=== PATIENT | male | born 1970 | race African-American/Black ===

== ENCOUNTER 2021-10-30 09:36 | Inpatient (IN) ==
[2021-10-30] MEDS ORDERED: ONDANSETRON INJ 2 MG/ML 2 ML VIAL IV STA (09:46)
--- NOTE | 2021-10-30 09:54 | Emergency Department Note ---
Impression & Plan Weakness, DKA (diabetic ketoacidosis), Acute dehydration, Elevated lactic acid level, Metabolic acidosis ED Provider Note NAME: MEGHNA [id number] RICHAR AGE: 51 SEX: M : 1970 ARRIVES VIA: Ambulance INFORMANT: [Patient][ems] ED PROVIDER(S): [Miguel Menard MD] CHIEF COMPLAINT: Syncope HISTORY OF PRESENT ILLNESS: The patient is a 51-year-old male who is from the local [facility] longterm--[facility]. The patient has a history of high cholesterol and takes medications for this. He states that 2 weeks ago, he began to notice increased thirst and increased urination. His vision seemed off. He began to have difficulty concentrating. He lost his urine at nighttime a few times because of how much urine he is producing. He denies fevers, cough or congestion. No shortness of breath. No abdominal pain. No diarrhea. He really has not had any food for about 4 to 5 days-he has no appetite. Today, he vomited for the first time. He went to the [facility] at the longterm and had a syncopal event. Apparently, the blood sugar was tested and was recorded as high. He was given 10 units of regular insulin. He was sent to the hospital by EMS. He received about 400 cc of IV fluid on the way here. The patient currently complains of generalized weakness and fatigue. He states he is so weak he can barely even climb the stairs. His weakness is generalized. He denies any pain at the present. REVIEW OF SYSTEMS: See HPI for pertinent positives and negatives. A total of ten systems were reviewed and were otherwise negative. PMHx/PSHx: See Below SOCIAL HISTORY: See Below. PHYSICAL EXAM: GENERAL: Patient is in no acute distress. HEENT: No acute trauma, normocephalic atraumatic, mucous membranes dry, no nasal congestion, no scleral icterus. NECK: No stridor, no adenopathy, no meningismus, trachea is midline. LUNGS: Clear to auscultation bilaterally, no wheeze, no rhonchi, breath sounds equal. HEART: Without murmurs gallops or rubs, regular rate and rhythm. ABDOMEN: Soft, nontender, bowel sounds positive, no hernias, no peritonitis. EXTREMITIES: No cyanosis or edema, full range of motion of all the joints without pain or difficulty, no signs for acute trauma. NEUROLOGIC: Oriented x 3, no acute motor or sensory deficits, no focal weakness. SKIN: No rash, no jaundice, no diaphoresis. DIFFERENTIAL DIAGNOSIS: Infection, UTI, metabolic acidosis, dehydration, metabolic abnormality, hypo/hyperglycemia, electrolyte disturbance, anemia, hypoxia, cardiac sources, intracerebral event, toxicologic issues, stroke, TIA, as well as other pathologies. EMERGENCY DEPARTMENT COURSE/PROCEDURES: ECG: Indication was weakness. The ECG shows a normal sinus rhythm with a rate of 86. There is no ST elevation, no PVCs. The QTC is 536. Continuous Cardiac Monitoring: An order was placed for continuous cardiac monitoring. The monitor shows a rate of 90 with normal sinus rhythm. Critical Care Note: I have personally spent 49 minutes of critical care time in the direct management of this patient. This includes bedside care, interpretation of diagnostic studies, and testing, discussion with consultants, patient, and family members, and other required patient management activities. This 49 minutes is in excess of all separately billable procedures. MEDICAL DECISION MAKING: There is no leukocytosis or concerning anemia. There is a normal platelet count. ABG shows a metabolic acidosis with a pH of 7.29. There was some respiratory compensation noted. Renal panel testing showed a high sugar at over 700, metabolic acidosis was noted based on the low carbon dioxide value. There was some acute kidney injury with a creatinine of 1.9. Lactic acid level was elevated consistent with dehydration or possibly infection. Alk phos was a bit elevated, bilirubin and AST/ALT were normal. Patient appeared to be in a euthyroid state. ECG showed a normal sinus rhythm, no ischemia. Cardiac enzyme testing x1 was not consistent with acute cardiac injury. Chest x-ray did not show pneumonia or CHF. Urinalysis shows ketones and glucose, no infection. Covid testing returned negative. The patient presents with weakness. He was found by work-up to be in DKA. The patient was given an additional liter of IV saline while here in the ED. He had received about 1 L through EMS. Received IV Zofran for nausea. He was placed on an insulin drip to be titrated based on his sugar values. Patient seems to be improving. His sugar is improving. He is going to require a hospital stay, IV hydration, IV insulin. I do think the findings of DKA explain his complaints. I spoke with the patient and case management. The on-call hospitalist was consulted. Past Med/Surg History Medical History Hyperlipidemia Surgical History H/O hand surgery Family History Mother Diabetes Brother Diabetes Social History Smoking Status: Former smoker Smoking End Date: 3 YEARS AGO; Second Hand Exposure: No; Hx Alcohol Use: No Hx Substance Use: Yes Substance Use Type Other:: 17 YEARS AGO Preferred Language: Uzbek Communication Ability: Effective Software Reverse Engineer Required: No Beliefs That Will Affect Care: None Current Living Situation: Other Current Living Situation Comment: [facility] Other Information That Helps Us Care for You: No Feels Safe at Home: Yes Safety Concerns: Feels Safe At This Time Assistive Devices: None Allergies Allergies Allergy/AdvReac Type Severity Reaction Status Date / Time No Known Allergies Allergy Unverified 10/30/21 11:11 Home Meds Home Medications Medication Instructions Recorded Confirmed atorvastatin 40 mg tablet 40 mg PO DAILY 10/30/21 10/30/21 Results & Data (ED) Vital Signs Vital Signs - 24 hr 10/30/21 09:45 10/30/21 09:51 10/30/21 09:52 Temperature Temperature Source Pulse Rate 94 H 90 Pulse Rate [Apical] 90 Pulse Rate from SpO2 Sensor Respiratory Rate 24 20 20 Respiratory Effort / Characteristics Non-Labored Spontaneous Respiratory Depth Normal Respiratory Pattern Regular Blood Pressure Blood Pressure [Right Arm] 160/111 H Blood Pressure Mean Blood Pressure Mean [Right Arm] 127 Pulse Oximetry 98 98 Oxygen Delivery Method Room Air Room Air Sepsis Recent Fever Within 48 Hours Sepsis New/Unexplained Change in Mental Status Sepsis Action Taken by Nursing 10/30/21 09:53 10/30/21 10:00 10/30/21 10:14 Temperature 37.2 C Temperature Source Oral Pulse Rate 90 88 86 Pulse Rate [Apical] Pulse Rate from SpO2 Sensor 84 83 Respiratory Rate 20 19 13 Respiratory Effort / Characteristics Non-Labored Spontaneous Respiratory Depth Normal Respiratory Pattern Regular Blood Pressure 160/111 H 156/114 H Blood Pressure [Right Arm] Blood Pressure Mean 127 128 Blood Pressure Mean [Right Arm] Pulse Oximetry 98 98 97 Oxygen Delivery Method Room Air Sepsis Recent Fever Within 48 Hours No Sepsis New/Unexplained Change in Mental Status No Sepsis Action Taken by Nursing No Action Required 10/30/21 10:30 Temperature Temperature Source Pulse Rate 76 Pulse Rate [Apical] Pulse Rate from SpO2 Sensor 75 Respiratory Rate 12 Respiratory Effort / Characteristics Respiratory Depth Respiratory Pattern Blood Pressure 142/95 H Blood Pressure [Right Arm] Blood Pressure Mean 110 Blood Pressure Mean [Right Arm] Pulse Oximetry 98 Oxygen Delivery Method Sepsis Recent Fever Within 48 Hours Sepsis New/Unexplained Change in Mental Status Sepsis Action Taken by Senior Living Medications Current Medication List: was personally reviewed by me Laboratory Data Attestation: I reviewed the patient's lab results. Result diagrams: 10/30/21 10:04 10/30/21 14:28 Lab Results 10/30/21 10/30/21 10/30/21 Range/Units 09:45 10:04 10:04 WBC 6.96 (4.8-10.8) K/uL RBC 6.06 (4.7-6.1) M/uL Hgb 18.0 (14.0-18.0) g/dL Hct 54.5 H (42-52) % MCV 89.9 (80-100) fL MCH 29.7 (25-34) pg MCHC 33.0 (32-36) g/dL RDW Std Deviation 47.2 H (36.4-46.3) fL RDW Coeff of Rahat 14.4 (11.5-14.5) % Plt Count 154 (130-400) K/uL MPV 13.6 H (7.4-10.4) fL Immature Gran % (Auto) 0.1 % Neut % (Auto) 72.3 % Lymph % (Auto) 20.5 % Cuming % (Auto) 6.8 % Eos % (Auto) 0.0 % Baso % (Auto) 0.3 % Neut # (Auto) 5.03 (1.4-6.5) K/uL Lymph # (Auto) 1.43 (1.2-3.4) K/uL Cuming # (Auto) 0.47 (0.11-0.59) K/uL Eos # (Auto) 0.00 (0-0.5) K/uL Baso # (Auto) 0.02 (0-0.2) K/uL Immature Gran # (Auto) 0.01 (0.00-0.02) K/uL ABG pH (7.35-7.45) ABG pCO2 (35-46) mmHg ABG pO2 (80-95) mmHg ABG HCO3 (19-24) mmol/L ABG O2 Saturation (90-95) % ABG Base Excess (-9-1.8) mEq/L Ibrahima Test (Pos) Barometric Pressure mm/Hg Oxygen Given Sodium 137 (136-145) mmol/L Potassium 5.5 H (3.5-5.1) mmol/L Chloride 95 L (98-107) mmol/L Carbon Dioxide 13 L (21-32) mmol/L Anion Gap 29 H (3-11) BUN 33 H (6-23) mg/dl Creatinine 1.98 H (0.6-1.4) mg/dl Est Cr Clr Drug Dosing 52.5 ml/min Est GFR ( Amer) 44.7 ml/min Est GFR (Non-Af Amer) 38.5 ml/min BUN/Creatinine Ratio 16.7 (10-20) Glucose 765 H* (70-99(Fasting)) mg/dl Lactate (0.4-2.0) mmol/L Calcium 9.6 (8.5-10.1) mg/dl Phosphorus 6.6 H (2.5-4.9) mg/dl Magnesium 3.0 H (1.7-2.4) mg/dl Total Bilirubin 0.7 (0.2-1.0) mg/dl AST 13 (13-39) U/L ALT 26 (7-52) U/L Alkaline Phosphatase 117 H (34-104) U/L Total Creatine Kinase 384 H (30-223) U/L Troponin I < 0.03 (0-0.04) ng/ml Total Protein 8.2 (6.0-8.3) gm/dl Albumin 4.7 (3.4-5.0) gm/dl Globulin 3.5 (2.5-4.0) gm/dl Albumin/Globulin Ratio 1.3 (0.9-2) TSH (0.300-4.500) uIu/ml Urine Color Urine Appearance (Clear) Urine pH (4.5-7.5) Ur Specific [place] (1.000-1.030) Urine Protein (Negative) Urine Glucose (UA) (Negative) Urine Ketones (Negative) Urine Blood (Negative) Urine Nitrite (Negative) Urine Bilirubin (Negative) Urine Urobilinogen (Negative) Ur Leukocyte Esterase (Negative) Urine WBC (Auto) (0-5) /hpf Urine RBC (Auto) (0-4) /hpf U Hyaline Cast (Auto) (0-5) /lpf U Epithel Cells (Auto) (0-5) /lpf Urine Bacteria (Auto) (Negative) SARS-CoV-2, RNA, NAAT NEGATIVE (NEGATIVE) 10/30/21 10/30/21 10/30/21 Range/Units 10:04 10:04 10:10 WBC (4.8-10.8) K/uL RBC (4.7-6.1) M/uL Hgb (14.0-18.0) g/dL Hct (42-52) % MCV (80-100) fL MCH (25-34) pg MCHC (32-36) g/dL RDW Std Deviation (36.4-46.3) fL RDW Coeff of Rahat (11.5-14.5) % Plt Count (130-400) K/uL MPV (7.4-10.4) fL Immature Gran % (Auto) % Neut % (Auto) % Lymph % (Auto) % [place]uming % (Auto) % Eos % (Auto) % Baso % (Auto) % Neut # (Auto) (1.4-6.5) K/uL Lymph # (Auto) (1.2-3.4) K/uL [place] # (Auto) (0.11-0.59) K/uL Eos # (Auto) (0-0.5) K/uL Baso # (Auto) (0-0.2) K/uL Immature Gran # (Auto) (0.00-0.02) K/uL ABG pH 7.29 L (7.35-7.45) ABG pCO2 29 L (35-46) mmHg ABG pO2 97 H (80-95) mmHg ABG HCO3 13 L (19-24) mmol/L ABG O2 Saturation 97.2 H (90-95) % ABG Base Excess -11.4 L (-9-1.8) mEq/L Ibrahima Test Pos (Pos) Barometric Pressure 733.5 mm/Hg Oxygen Given RA Sodium (136-145) mmol/L Potassium (3.5-5.1) mmol/L Chloride (98-107) mmol/L Carbon Dioxide (21-32) mmol/L Anion Gap (3-11) BUN (6-23) mg/dl Creatinine (0.6-1.4) mg/dl Est Cr Clr Drug Dosing ml/min Est GFR ( Amer) ml/min Est GFR (Non-Af Amer) ml/min BUN/Creatinine Ratio (10-20) Glucose (70-99(Fasting)) mg/dl Lactate 3.4 H* (0.4-2.0) mmol/L Calcium (8.5-10.1) mg/dl Phosphorus (2.5-4.9) mg/dl Magnesium (1.7-2.4) mg/dl Total Bilirubin (0.2-1.0) mg/dl AST (13-39) U/L ALT (7-52) U/L Alkaline Phosphatase (34-104) U/L Total Creatine Kinase (30-223) U/L Troponin I (0-0.04) ng/ml Total Protein (6.0-8.3) gm/dl Albumin (3.4-5.0) gm/dl Globulin (2.5-4.0) gm/dl Albumin/Globulin Ratio (0.9-2) TSH 0.340 (0.300-4.500) uIu/ml Urine Color Urine Appearance (Clear) Urine pH (4.5-7.5) Ur Specific [place] (1.000-1.030) Urine Protein (Negative) Urine Glucose (UA) (Negative) Urine Ketones (Negative) Urine Blood (Negative) Urine Nitrite (Negative) Urine Bilirubin (Negative) Urine Urobilinogen (Negative) Ur Leukocyte Esterase (Negative) Urine WBC (Auto) (0-5) /hpf Urine RBC (Auto) (0-4) /hpf U Hyaline Cast (Auto) (0-5) /lpf U Epithel Cells (Auto) (0-5) /lpf Urine Bacteria (Auto) (Negative) SARS-CoV-2, RNA, NAAT (NEGATIVE) 10/30/21 Range/Units 10:47 WBC (4.8-10.8) K/uL RBC (4.7-6.1) M/uL Hgb (14.0-18.0) g/dL Hct (42-52) % MCV (80-100) fL MCH (25-34) pg MCHC (32-36) g/dL RDW Std Deviation (36.4-46.3) fL RDW Coeff of Rahat (11.5-14.5) % Plt Count (130-400) K/uL MPV (7.4-10.4) fL Immature Gran % (Auto) % Neut % (Auto) % Lymph % (Auto) % Cuming % (Auto) % Eos % (Auto) % Baso % (Auto) % Neut # (Auto) (1.4-6.5) K/uL Lymph # (Auto) (1.2-3.4) K/uL [place]uming # (Auto) (0.11-0.59) K/uL Eos # (Auto) (0-0.5) K/uL Baso # (Auto) (0-0.2) K/uL Immature Gran # (Auto) (0.00-0.02) K/uL ABG pH (7.35-7.45) ABG pCO2 (35-46) mmHg ABG pO2 (80-95) mmHg ABG HCO3 (19-24) mmol/L ABG O2 Saturation (90-95) % ABG Base Excess (-9-1.8) mEq/L Ibrahima Test (Pos) Barometric Pressure mm/Hg Oxygen Given Sodium (136-145) mmol/L Potassium (3.5-5.1) mmol/L Chloride (98-107) mmol/L Carbon Dioxide (21-32) mmol/L Anion Gap (3-11) BUN (6-23) mg/dl Creatinine (0.6-1.4) mg/dl Est Cr Clr Drug Dosing ml/min Est GFR ( Amer) ml/min Est GFR (Non-Af Amer) ml/min BUN/Creatinine Ratio (10-20) Glucose (70-99(Fasting)) mg/dl Lactate (0.4-2.0) mmol/L Calcium (8.5-10.1) mg/dl Phosphorus (2.5-4.9) mg/dl Magnesium (1.7-2.4) mg/dl Total Bilirubin (0.2-1.0) mg/dl AST (13-39) U/L ALT (7-52) U/L Alkaline Phosphatase (34-104) U/L Total Creatine Kinase (30-223) U/L Troponin I (0-0.04) ng/ml Total Protein (6.0-8.3) gm/dl Albumin (3.4-5.0) gm/dl Globulin (2.5-4.0) gm/dl Albumin/Globulin Ratio (0.9-2) TSH (0.300-4.500) uIu/ml Urine Color Yellow Urine Appearance Clear (Clear) Urine pH 5.0 (4.5-7.5) Ur Specific [place] 1.032 H (1.000-1.030) Urine Protein Trace H (Negative) Urine Glucose (UA) 3+ H (Negative) Urine Ketones 4+ H (Negative) Urine Blood 1+ H (Negative) Urine Nitrite Negative (Negative) Urine Bilirubin Negative (Negative) Urine Urobilinogen Negative (Negative) Ur Leukocyte Esterase Negative (Negative) Urine WBC (Auto) 0 (0-5) /hpf Urine RBC (Auto) 0-4 (0-4) /hpf U Hyaline Cast (Auto) 0 (0-5) /lpf U Epithel Cells (Auto) 0-5 (0-5) /lpf Urine Bacteria (Auto) Negative (Negative) SARS-CoV-2, RNA, NAAT (NEGATIVE) Administered Medications Heparin Sodium (Porcine) (Heparin Sod 5,000 Unit/0.5 Ml Vial) 5,000 units SQ Q8 [facility] Stop: 11/29/21 14:59 Last Admin: 10/30/21 16:03 Dose: 5,000 units Documented by: [id number] Insulin Human Regular 250 (units/ Sodium Chloride) 250 mls @ 5.8 mls/hr IV .Q24H [facility]; Protocol Stop: 11/29/21 10:44 Last Titration: 10/30/21 16:11 Dose: 5.8 unit/hr, 5.8 mls/hr Documented by: [id number] Cosigned by: [id number] Admin: 10/30/21 12:50 Dose: 7.2 unit/hr, 7.2 mls/hr Documented by: [id number] Cosigned by: [id number] Titration: 10/30/21 12:50 Dose: 9 unit/hr, 9 mls/hr Documented by: [id number] Cosigned by: [id number] Admin: 10/30/21 11:34 Dose: 9 unit/hr, 9 mls/hr Documented by: [id number] Cosigned by: [id number] Parenteral Electrolytes (Plasma-Lyte A) 1,000 mls @ 200 mls/hr IV .Q5H [facility] Stop: 11/29/21 14:44 Last Admin: 10/30/21 15:00 Dose: 200 mls/hr Documented by: [id number] Discontinued Medications Sodium Chloride (Nss 1000ml) 1,000 mls @ 125 mls/hr IV .Q8H [facility] Stop: 10/30/21 17:59 Last Admin: 10/30/21 10:20 Dose: Not Given Documented by: [id number] Sodium Chloride (Nss 1000ml) 1,000 mls @ 999 mls/hr IV .Q1H1M ONE Stop: 10/30/21 11:17 Last Infusion: 10/30/21 11:34 Dose: 0 mls/hr Documented by: [id number] Admin: 10/30/21 10:20 Dose: 999 mls/hr Documented by: [id number] Parenteral Electrolytes (Plasma-Lyte A) 1,000 mls @ 125 mls/hr IV .Q8H [facility] Stop: 11/29/21 10:44 Last Infusion: 10/30/21 15:10 Dose: 0 mls/hr Documented by: [id number] Admin: 10/30/21 12:01 Dose: 125 mls/hr Documented by: [id number] Insulin Aspart (Insulin Aspart Per Unit) 0 units SC ACHS [facility] Stop: 11/29/21 11:59 Last Admin: 10/30/21 14:14 Dose: Not Given Documented by: [id number] Insulin Human Regular (Novolin-R Bolus From Bag) 9 units IV ONE ONE Stop: 10/30/21 11:01 Last Admin: 10/30/21 11:34 Dose: 9 units Documented by: [id number] Cosigned by: [id number] Miscellaneous (Dka Goal Range 150-250 Mg/Dl) 1 ea N/A ONE ONE Stop: 10/30/21 10:38 Last Admin: 10/30/21 12:01 Dose: 1 ea Documented by: [id number] Ondansetron HCl (Ondansetron Inj 2 Mg/Ml 2 Ml Vial) 4 mg IV NOW STA Stop: 10/30/21 09:47 Last Admin: 10/30/21 10:14 Dose: 4 mg Documented by: [id number] Imaging Data Radiologist's Impression: Chest X-Ray 10/30/21 09:46 XR chest 1V portable CLINICAL HISTORY: weakness TECHNIQUE: Single frontal radiograph of the chest was obtained. Comparison: None available at the time of this dictation. FINDINGS: No lines and tubes are seen. The cardiomediastinal silhouette is normal. The lungs are clear. No evidence of pleural effusion or pneumothorax. IMPRESSION: No acute chest disease. ACT 112: Negative or not required by law. Electronically signed by: Fam Vasquez M.D. 10/30/2021 10:33 AM Discharge Plan Visit Data Chief Complaint: Syncope (Near Syncope) Stated Complaint: WEAKNESS, SYNCOPE, HYPERGLYCEMIA ED Provider: Miguel Menard Discharge Problem: Weakness, DKA (diabetic ketoacidosis), Acute dehydration, Elevated lactic acid level, Metabolic acidosis Patient Disposition: Admitted As Inpatient Condition: Fair Discharge Instructions Interventions: ED Discharge Assessment Last Done: 10/30/21 14:24
[2021-10-30] MEDS ORDERED: SODIUM CHLORIDE 0.9% 1000ML 1,000 ML IV SCH (10:00)
[2021-10-30] MEDS ORDERED: PATIENT'S HEIGHT AND/OR WEIGHT NEEDED SCH (10:00)
[2021-10-30 10:15] LABS: Basophils # (auto) 0.02 K/uL (0-0.2); Basophils % (auto) 0.3 %; Hematocrit (blood only) 54.5 % (42-52); Immature Granulocytes # (auto) 0.01 K/uL (0.00-0.02); Immature Granulocytes % (auto) 0.1 %; Lymphocytes # (auto) 1.43 K/uL (1.2-3.4); Lymphocytes % (auto) 20.5 %; Mean Corpuscular Hemoglobin 29.7 pg (25-34); Mean Corpuscular Volume 89.9 fL (80-100); Mean Platelet Volume 13.6 fL (7.4-10.4); Monocytes # (auto) 0.47 K/uL (0.11-0.59); Monocytes % (auto) 6.8 %; Neutrophils # (auto) 5.03 K/uL (1.4-6.5); Neutrophils % (auto) 72.3 %; Platelet Count 154 K/uL (130-400); RDW Coefficient of Variation 14.4 % (11.5-14.5); RDW Standard Deviation 47.2 fL (36.4-46.3); Red Blood Count 6.06 M/uL (4.7-6.1); White Blood Count 6.96 K/uL (4.8-10.8)
[2021-10-30] MEDS ORDERED: SODIUM CHLORIDE 0.9% 1000ML 1,000 ML IV ONE (10:17)
[2021-10-30 10:27] LABS: Allen Test Pos (Pos); Base Excess ABG -11.4 mEq/L (-9-1.8); HCO3 ABG 13 mmol/L (19-24); Oxygen Saturation ABG 97.2 % (90-95); PCO2 ABG 29 mmHg (35-46); PO2 ABG 97 mmHg (80-95); pH ABG 7.29 (7.35-7.45)
--- NOTE | 2021-10-30 10:34 | XRay Report ---
XR chest 1V portable CLINICAL HISTORY: weakness TECHNIQUE: Single frontal radiograph of the chest was obtained. Comparison: None available at the time of this dictation. FINDINGS: No lines and tubes are seen. The cardiomediastinal silhouette is normal. The lungs are clear. No evid ence of pleural effusion or pneumothorax. IMPRESSION: No acute chest disease. ACT 112: Negative or not required by law. Electronically signed by: Fam Vasquez M.D. 10/30/2021 10:33 AM
[2021-10-30 10:36] LABS: Alanine Aminotransferase 26 U/L (7-52); Albumin Globulin Ratio 1.3 (0.9-2); Albumin Level 4.7 gm/dl (3.4-5.0); Alkaline Phosphatase 117 U/L (34-104); Anion Gap 29 (3-11); Aspartate Aminotransferase 13 U/L (13-39); BUN Creatinine Ratio 16.7 (10-20); Bilirubin,Total 0.7 mg/dl (0.2-1.0); Blood Urea Nitrogen 33 mg/dl (6-23); Calcium 9.6 mg/dl (8.5-10.1); Carbon Dioxide 13 mmol/L (21-32); Chloride 95 mmol/L (98-107); Creatine Kinase 384 U/L (30-223); Creatinine Clr Calc Pharmacy 52.5 ml/min; Est GFR (African American) 44.7 ml/min; Est GFR (Non-African American) 38.5 ml/min; Globulin 3.5 gm/dl (2.5-4.0); Glucose 765 mg/dl (70-99(Fasting)); Phosphorus 6.6 mg/dl (2.5-4.9); Potassium 5.5 mmol/L (3.5-5.1); Sodium 137 mmol/L (136-145); Total Protein 8.2 gm/dl (6.0-8.3)
[2021-10-30] MEDS ORDERED: STAT IV Infusion **Titration per Protocol STA ×4 (10:37→11:41)
[2021-10-30] MEDS ORDERED: GLUCAGON FOR INJ 1 MG VIAL SQ PRN (10:37)
[2021-10-30] MEDS ORDERED: GLUCOSE 40% GEL 15 GM TUBE PO PRN (10:37)
[2021-10-30] MEDS ORDERED: CARBOHYDRATES FOR HYPOGLYCEMIA PO PRN (10:37)
[2021-10-30] MEDS ORDERED: GLUCOSE 10 TABS/TUBE PO PRN (10:37)
[2021-10-30] MEDS ORDERED: DEXTROSE 50% 50 ML SYRINGE IV PRN (10:37)
[2021-10-30] MEDS ORDERED: DKA GOAL RANGE 150-250 mg/dl ONE ×2 (10:37→14:08)
[2021-10-30] MEDS ORDERED: NORMOSOL-R 1,000 ML IV SCH (10:45)
[2021-10-30] MEDS ORDERED: PENDING 1/2NSS+20mEq KCL IVF SCH (11:00)
[2021-10-30] MEDS ORDERED: NovoLIN-R BOLUS FROM BAG IV ONE (11:00)
[2021-10-30] MEDS ORDERED: PENDING D5 1/2NS+20mEq KCL IVF SCH (11:00)
--- NOTE | 2021-10-30 11:29 | History & Physical Report ---
Date of Service October 30, 2021 Assessment & Plan (1) DKA (diabetic ketoacidosis): Plan: Diabetic ketoacidosis No known history of Diabetes Mellitus Acute anion gap metabolic acidosis Lactic acidosis: 3.4>1.8 Blood Glucose level 765>480 Start on IV fluids, IV insulin Monitor electrolytes and replace as needed Obtain blood cultures No obvious source of infection currently Glycemic pharmacist to help with DKA protocol N.p.o. for now BMP Q4H Check HbA1c clinical nurse educator consulted Acute kidney injury Unknown creatinine baseline Secondary to above Creatinine 1.98 Avoid nephrotoxic agents as able Continue IV fluids Check renal ultrasound Syncope Blurred vision Likely secondary to hypoglycemia Check CT head Check orthostatics Fall precautions Consider further work-up if needed Elevated blood pressure No known history of hypertension IV hydralazine as needed Consider scheduled antihypertensives if persistent Hyperlipidemia Hold atorvastatin due to elevated CK levels Continue IV fluids Monitor CK Hyperkalemia Hypermagnesemia Hyperphosphatemia Monitor Prolonged QTC Will repeat pattern finisher on telemetry Avoid QTC prolonging meds as able Generalized weakness Ambulatory dysfunction PT OT when appropriate Fall precautions DVT Px: Heparin SQ Code Status Full Code History of Present Illness Chief Complaint: Syncope Primary Care Provider: KYLE Escalante Patient is a 51-year-old male with history of hyperlipidemia and no other medical problems [facility] with history of gradually worsening increased thirst, increased urination and generalized weakness since 2 weeks duration he also states having shortness of breath at rest and with activity. He admits to drinking water more frequently but despite feels dry mouth. He had an episode of nausea, vomiting today. He states that he has been having intermittent fever, chills, dizziness and has a very poor appetite for the past 2 weeks. He also has been having blurred vision and difficulty concentrating over the same period. He visited the [facility] at the present today and had a syncopal episode. He was unaware of the events after the syncope. Halfway guards at bedside, mentioned that he could have passed out for about 15 minutes. Patient states having generalized weakness and fatigue resulting in difficulty with ambulation. Denies any history of chest pain, palpitations, pedal edema, cough, hemoptysis, headache, bowel/bladder incontinence, abdominal pain, diarrhea, dysuria, hematuria, recent change in medications. Allergies Allergy/AdvReac Type Severity Reaction Status Date / Time No Known Allergies Allergy Unverified 10/30/21 11:11 Home Medications Medication Instructions Recorded Confirmed Type atorvastatin 40 mg tablet 40 mg PO DAILY 10/30/21 10/30/21 History Past Med/Surg History Medical History Hyperlipidemia Surgical History H/O hand surgery Family History Mother Diabetes Brother Diabetes Social History Smoking Status: Former smoker Hx Alcohol Use: Yes Feels Safe at Home: Yes Review of Systems Review of Systems: All systems reviewed & are unremarkable except as noted in Subjective Physical Exam Physical Exam: Physical Exam: Vitals signs as noted above General Appearance:Moderately built and nourished, no apparent distress Head: normocephalic, Atraumatic Eyes: normal inspection, EOMI Neck: supple, Trachea midline Respiratory/Chest: Normal breath sounds, CTA, No accessory muscle use Cardiovascular: S1, S2, No murmur Abdomen/GI:Soft, Non tender, Bowel sounds present Extremities/Musculoskeletal:normal inspection, no edema Neurologic/Psych:AAOX3, grossly no focal neurological deficits Skin: normal color, warm Results & Data Results & Data ([facility]) Vital Signs (Past 12 Hours) Vital Signs Temp Pulse Pulse Resp BP BP Pulse Ox 10/30/21 10:30 76 12 142/95 H 98 10/30/21 10:14 86 13 156/114 H 97 10/30/21 10:00 88 19 98 10/30/21 09:53 37.2 C 90 20 160/111 H 98 10/30/21 09:52 90 20 98 10/30/21 09:51 90 20 160/111 H 98 10/30/21 09:45 94 H 24 Laboratory Results Short CBC 10/30/21 Range/Units 10:04 WBC 6.96 (4.8-10.8) K/uL Hgb 18.0 (14.0-18.0) g/dL Hct 54.5 H (42-52) % Plt Count 154 (130-400) K/uL BMP 10/30/21 10:04 Sodium 137 Potassium 5.5 H Chloride 95 L Carbon Dioxide 13 L BUN 33 H Creatinine 1.98 H Glucose 765 H* Calcium 9.6 Cardiac Enzymes 10/30/21 Range/Units 10:04 Total Creatine Kinase 384 H (30-223) U/L Troponin I < 0.03 (0-0.04) ng/ml Liver Function 10/30/21 Range/Units 10:04 Total Bilirubin 0.7 (0.2-1.0) mg/dl AST 13 (13-39) U/L ALT 26 (7-52) U/L Alkaline Phosphatase 117 H (34-104) U/L Albumin 4.7 (3.4-5.0) gm/dl Urine 10/30/21 Range/Units 10:47 Urine Color Yellow Urine Appearance Clear (Clear) Urine pH 5.0 (4.5-7.5) Ur Specific [place] 1.032 H (1.000-1.030) Urine Protein Trace H (Negative) Urine Glucose (UA) 3+ H (Negative) Diagnostic Findings CXR:No acute chest disease. Medications Administered Home Medications Medication Instructions Recorded Confirmed atorvastatin 40 mg tablet 40 mg PO DAILY 10/30/21 10/30/21 ECG Additional Comments: EKG: Normal sinus rhythm, nonspecific conduction block, QTC 536.
[2021-10-30] MEDS ORDERED: INSULIN ASPART PER UNIT SC SCH ×3 (11:30→12:00)
[2021-10-30] MEDS: INSULIN REGULAR 250 UNITS in SODIUM CHLORIDE 0.9% 247.5 ML IV SCH ×2 (11:34→12:50)
[2021-10-30 12:03] LABS: Troponin I < 0.03 ng/ml (0-0.04)
[2021-10-30 12:05] LABS: Appearance Urine Clear (Clear); Bacteria Urine Automated Negative (Negative); Bilirubin Urine Negative (Negative); Blood Urine 1+ (Negative); Cast Urine Automated 0 /lpf (0-5); Color Urine Yellow; Epithelial Cell Urine Auto 0-5 /lpf (0-5); Glucose Urine UA 3+ (Negative); Ketones Urine 4+ (Negative); Leukocyte Esterase Urine Negative (Negative); Nitrite Urine Negative (Negative); Protein Urine Trace (Negative); RBC Urine Automated 0-4 /hpf (0-4); Specific Gravity Urine 1.032 (1.000-1.030); Urobilinogen Urine Negative (Negative); WBC Urine Automated 0 /hpf (0-5)
[2021-10-30] MEDS ORDERED: hydrALAZINE HCL 20 MG/ML VIAL IV PRN (14:08)
[2021-10-30] MEDS ORDERED: PROMETHAZINE HCL 6.25 MG in SODIUM CHLORIDE 0.9% 50 ML IV PRN (14:08)
[2021-10-30] MEDS ORDERED: PHARMACY GLYCEMIC MGMT CONSULT PRN (14:08)
[2021-10-30] MEDS ORDERED: ACETAMINOPHEN 325 MG TAB PO PRN (14:08)
[2021-10-30] MEDS ORDERED: INSULIN REGULAR 250 UNITS in SODIUM CHLORIDE 0.9% 247.5 ML IV SCH (14:08)
[2021-10-30] MEDS ORDERED: POLYETHYLENE (MIRALAX) 17 GM PACK PO PRN (14:08)
--- NOTE | 2021-10-30 14:27 | Pharmacy Report ---
Pharmacy Glycemic Short Note 2 - Date of Service October 30, 2021 - Glycemic Short BSG Results (Last 24 hours): 10/30/21 10/30/21 10/30/21 10:04 12:40 14:06 Glucose 765 H* POC Glucose 480 H* 384 H* OUTPATIENT ANTIDIABETIC REGIMEN: * N/A ASSESSMENT: * Patient presents with DKA. * Patient initiated on IV insulin at 0.1 unit/kg IV bolus the 0.1 unit/kg. Titrate per protocol. * Patient NPO. * Continue current regimen. Start basal insulin when patient's laboratory results have normalized. PLAN FOR INPATIENT GLYCEMIC CONTROL: * IV insulin according to protocol PLAN FOR DISCHARGE: * TBD HbA1C ordered
--- NOTE | 2021-10-30 14:49 | CT Scan Report ---
CT OF THE HEAD WITHOUT CONTRAST CLINICAL HISTORY: Syncope. COMPARISON STUDY: No previous studies for comparison. CT DOSE: 638.56 mGycm TECHNIQUE: Helical axial images of the head were obtained without IV contrast. Automated exposure con trol was utilized for the study. A dose lowering technique was utilized adhering to the principles o f ALARA. FINDINGS: No acute intracranial hemorrhage, midline shift or mass effect is present. The ventricular system is unremarkable. The basal cisterns are patent. No extra-axial collections are present. There are no findings to suggest acute dural sinus thrombosis or acute territorial infarct. No significant calvarial abnormalities are present. Visualized portions of the sinuses and mastoid air cells are anders ar. IMPRESSION: 1. No acute intracranial findings. 2. No acute calvarial fracture. ACT 112: Negative or not required by law. Electronically signed by: Howard Graham M.D. 10/30/2021 2:48 PM
[2021-10-30] MEDS: NORMOSOL-R 1,000 ML IV SCH ×2 (15:00→20:22)
[2021-10-30 15:52] LABS: BUN Creatinine Ratio 17.9 (10-20); Calcium 9.4 mg/dl (8.5-10.1); Creatinine Clr Calc Pharmacy 70.7 ml/min; Est GFR (African American) 54.5 ml/min; Magnesium 3.1 mg/dl (1.7-2.4); Phosphorus 2.4 mg/dl (2.5-4.9)
[2021-10-30] MEDS: HEPARIN SOD 5,000 UNIT/0.5 ML VIAL SQ SCH ×2 (16:03→21:17)
--- NOTE | 2021-10-30 16:27 | Electrocardiogram Report ---
Test Reason : Blood Pressure : / mmHG Vent. Rate : 086 BPM Atrial Rate : 086 BPM P-R Int : 184 ms QRS Dur : 126 ms QT Int : 448 ms P-R-T Axes : 079 105 062 degrees QTc Int : 536 ms Normal sinus rhythm Possible Left atrial enlargement Rightward axis Non-specific intra-ventricular conduction block Abnormal ECG No previous ECGs available Confirmed by Dayne Eugene ([id number]) on 10/30/2021 4:27:19 PM Referred By: [facility] Confirmed By:Dayne Eugene
[2021-10-30] MEDS: INSULIN ASPART PER UNIT SC SCH ×2 (17:36→21:08)
--- NOTE | 2021-10-30 18:20 | Ultrasound Report ---
ULTRASOUND KIDNEYS AND BLADDER CLINICAL HISTORY: Acute renal insufficiency. COMPARISON STUDY: No priors. TECHNIQUE: Real-time, grayscale, and color flow sonography of the kidneys and bladder is performed. I mages are reviewed in the transverse and longitudinal planes. FINDINGS: Kidneys: The kidneys are normal in size and echotexture. The right kidney measures 10.1 x 4.6 x 4.7 c m and the left kidney measures 10.1 x 5.1 x 5.5 cm. There is no hydronephrosis. No shadowing renal c alculi are identified. There is no sonographic evidence of contour deforming renal mass lesion. No pe rinephric fluid is identified. Bladder: The bladder is normal in appearance. Ureteral jets were not seen. Upper abdomen: Survey images of the liver show evidence of steatosis. IMPRESSION: Unremarkable sonographic assessment of the kidneys and bladder. ACT 112: Negative or not required by law. Electronically signed by: Miguel Craig M.D. 10/30/2021 6:18 PM
[2021-10-30 19:42] LABS: Anion Gap 15 (3-11); BUN Creatinine Ratio 17.8 (10-20); Blood Urea Nitrogen 28 mg/dl (6-23); Calcium 9.4 mg/dl (8.5-10.1); Carbon Dioxide 22 mmol/L (21-32); Chloride 110 mmol/L (98-107); Creatinine Clr Calc Pharmacy 75.7 ml/min; Est GFR (African American) 59.1 ml/min; Glucose 265 mg/dl (70-99(Fasting)); Magnesium 3.1 mg/dl (1.7-2.4); Phosphorus < 1.0 mg/dl (2.5-4.9); Potassium 4.1 mmol/L (3.5-5.1); Sodium 147 mmol/L (136-145)
[2021-10-30] MEDS: D5W AND 1/2NSS + 20MEQ KCL 20 MEQ/1,000 ML BAG IV SCH (20:21)
[2021-10-30] MEDS ORDERED: POTASSIUM PHOS 3 MMOL/1 ML INFUSION IV STA (20:25)
[2021-10-30] MEDS ORDERED: POTASSIUM PHOSPHATE 24 MMOL in SODIUM CHLORIDE 0.9% 500 ML IV ONE (21:00)
[2021-10-30 23:36] LABS: BUN Creatinine Ratio 17.6 (10-20); Calcium 9.9 mg/dl (8.5-10.1); Creatinine Clr Calc Pharmacy 77.7 ml/min; Est GFR (Non-African American) 52.6 ml/min; Magnesium 2.9 mg/dl (1.7-2.4); Phosphorus 1.1 mg/dl (2.5-4.9); Potassium 3.9 mmol/L (3.5-5.1)
[2021-10-30] MEDS ORDERED: POT PHOSPHATE MONOBASIC W/ SOD TAB PO STA (23:41)
[2021-10-31 02:44] LABS: Calcium 8.4 mg/dl (8.5-10.1); Creatinine Clr Calc Pharmacy 77.7 ml/min; Est GFR (Non-African American) 52.6 ml/min; Magnesium 2.7 mg/dl (1.7-2.4); Phosphorus 2.8 mg/dl (2.5-4.9); Potassium 3.9 mmol/L (3.5-5.1)
[2021-10-31] MEDS: D5W AND 1/2NSS + 20MEQ KCL 20 MEQ/1,000 ML BAG IV SCH ×2 (05:19→08:01)
[2021-10-31] MEDS ORDERED: INSULIN ASPART PER UNIT SC SCH (05:30)
[2021-10-31] MEDS: HEPARIN SOD 5,000 UNIT/0.5 ML VIAL SQ SCH ×3 (05:40→20:41)
[2021-10-31 07:36] LABS: Basophils # (auto) 0.02 K/uL (0-0.2); Basophils % (auto) 0.3 %; Eosinophils # (auto) 0.03 K/uL (0-0.5); Eosinophils % (auto) 0.5 %; Hematocrit (blood only) 46.8 % (42-52); Hemoglobin 15.9 g/dL (14.0-18.0); Immature Granulocytes # (auto) 0.01 K/uL (0.00-0.02); Immature Granulocytes % (auto) 0.2 %; Lymphocytes # (auto) 1.98 K/uL (1.2-3.4); Mean Corpuscular Hemoglobin 29.6 pg (25-34); Mean Corpuscular Volume 87.2 fL (80-100); Mean Platelet Volume 12.6 fL (7.4-10.4); Monocytes # (auto) 0.57 K/uL (0.11-0.59); Monocytes % (auto) 9.5 %; Neutrophils # (auto) 3.39 K/uL (1.4-6.5); Neutrophils % (auto) 56.5 %; Platelet Count 121 K/uL (130-400); Platelet Estimate Decreased (Normal); RDW Coefficient of Variation 14.4 % (11.5-14.5); RDW Standard Deviation 45.9 fL (36.4-46.3); Red Blood Count 5.37 M/uL (4.7-6.1)
[2021-10-31 07:45] LABS: Albumin Globulin Ratio 1.4 (0.9-2); Albumin Level 3.8 gm/dl (3.4-5.0); BUN Creatinine Ratio 15.4 (10-20); Bilirubin,Total 0.5 mg/dl (0.2-1.0); Creatinine Clr Calc Pharmacy 79.8 ml/min; Est GFR (Non-African American) 54.3 ml/min; Globulin 2.8 gm/dl (2.5-4.0); Magnesium 2.6 mg/dl (1.7-2.4); Phosphorus 1.6 mg/dl (2.5-4.9); Potassium 3.7 mmol/L (3.5-5.1); Total Protein 6.6 gm/dl (6.0-8.3)
[2021-10-31] MEDS ORDERED: INSULIN GLARGINE SOLOSTAR 100 UNITS/ML 3 ML PEN SC ONE ×2 (08:00→15:00)
[2021-10-31] MEDS: SODIUM CHLOR 0.45% + 20MEQ KCL 20 MEQ/1,000 ML BAG IV SCH ×4 (08:08→23:14)
[2021-10-31 08:14] LABS: Estimated Average Glucose 438 mg/dl; Hemoglobin A1C 16.9 % (4.5-5.6)
[2021-10-31] MEDS: INSULIN ASPART PER UNIT SC SCH ×4 (08:18→20:38)
[2021-10-31 10:20] LABS: BUN Creatinine Ratio 15.3 (10-20); Calcium 8.7 mg/dl (8.5-10.1); Creatinine Clr Calc Pharmacy 79.3 ml/min; Est GFR (African American) 62.5 ml/min; Est GFR (Non-African American) 53.9 ml/min; Magnesium 2.6 mg/dl (1.7-2.4); Phosphorus 1.6 mg/dl (2.5-4.9); Potassium 3.6 mmol/L (3.5-5.1)
--- NOTE | 2021-10-31 15:01 | Pharmacy Report ---
Pharmacy Glycemic Short Note 2 - Date of Service October 31, 2021 - Glycemic Short BSG Results (Last 24 hours): 10/30/21 10/30/21 10/30/21 14:28 15:07 16:03 Glucose 398 H* POC Glucose 353 H* 272 H 10/30/21 10/30/21 10/30/21 17:01 18:00 18:10 Glucose 265 H POC Glucose 284 H 250 H 10/30/21 10/30/21 10/30/21 19:01 20:00 20:58 Glucose POC Glucose 228 H 201 H 215 H 10/30/21 10/30/21 10/30/21 21:59 22:34 23:02 Glucose 156 H POC Glucose 177 H 136 H 10/30/21 10/30/21 10/31/21 23:17 23:31 00:32 Glucose POC Glucose 149 H 157 H 141 H 10/31/21 10/31/21 10/31/21 01:29 02:08 02:35 Glucose 206 H POC Glucose 159 H 208 H 10/31/21 10/31/21 10/31/21 03:31 04:29 05:29 Glucose POC Glucose 233 H 224 H 253 H 10/31/21 10/31/21 10/31/21 06:31 07:05 07:05 Glucose 282 H Cancelled POC Glucose 270 H 10/31/21 10/31/21 10/31/21 07:34 08:45 09:38 Glucose 264 H POC Glucose 243 H 376 H* 10/31/21 10/31/21 10/31/21 09:38 10:42 12:00 Glucose POC Glucose 249 H 171 H 171 H 10/31/21 10/31/21 10/31/21 13:05 13:07 14:06 Glucose POC Glucose 376 H* 389 H* 356 H* OUTPATIENT ANTIDIABETIC REGIMEN: * N/A * HbA1c: 16.9% (10/31/21) ASSESSMENT: 10/31/21: * Labs were resolved this morning, indicating that pt could start to transition off of insulin drip. * Lantus provided this morning and dextrose removed from IV fluids. * Despite these changes, pt is still quite dependent on the insulin gtt (currently infusing at 5.2 units/hr, with BSGs >300mg/dL). * Additional Lantus provided this afternoon. 10/30 * Patient presents with DKA. * Patient initiated on IV insulin at 0.1 unit/kg IV bolus the 0.1 unit/kg. Titrate per protocol. * Patient NPO. * Continue current regimen. Start basal insulin when patient's laboratory results have normalized. PLAN FOR INPATIENT GLYCEMIC CONTROL: * IV insulin according to protocol * Okay to stop ~6 hours after second dose of Lantus given or when instructed to "hold" per Insulin Infusion Adjustment Calculator, whichever happens first * Basal insulin * Lantus 20 units SQ BID today * Bolus insulin -- once insulin infusion is stopped * NovoLog per scale ACHS or Q6hrs while NPO * Goal Range: Low 110 mg/dL - High 140 mg/dL * Correction Factor: 20 mg/dL/unit * Nutritional / Prandial insulin per carb ratio of 1 unit per 6 grams CHO consumed PLAN FOR DISCHARGE: * TBD
--- NOTE | 2021-10-31 16:46 | Hospitalist Progress Note ---
Date of Service October 31, 2021 Assessment & Plan (1) DKA (diabetic ketoacidosis): Plan: Diabetic ketoacidosis No known history of Diabetes Mellitus Acute anion gap metabolic acidosis Lactic acidosis: 3.4>1.8 Blood Glucose level 765>480 Start on IV fluids, IV insulin Monitor electrolytes and replace as needed Obtain blood cultures-negative so far No obvious source of infection currently Glycemic pharmacist to help with DKA protocol Check HbA1c--- very high at 16.9 educator senior clinical consulted Started on diabetic diet We will continue insulin drip for now Acute kidney injury Unknown creatinine baseline Creatinine 1.98 Avoid nephrotoxic agents as able Continue IV fluids Check renal ultrasound-unremarkable sonographic assessment of the kidneys Creatinine has been improving gradually Syncope Blurred vision Likely secondary to hypoglycemia Check CT head-no acute findings Check orthostatics Fall precautions Elevated blood pressure No known history of hypertension IV hydralazine as needed Consider scheduled antihypertensives if persistent Blood pressure seems to be stable right now Hyperlipidemia Hold atorvastatin due to elevated CK levels Continue IV fluids Monitor CK Hyperkalemia Hypermagnesemia Hyperphosphatemia Monitor-potassium has been normal Prolonged QTC Will repeat cotton grower on telemetry Avoid QTC prolonging meds as able Generalized weakness Ambulatory dysfunction PT OT when appropriate Fall precautions DVT Px: Heparin SQ Code Status Full Code Admission and Anticipated Discharge Date Admission Date: October 30, 2021 Subjective 10/31/2021 The patient was seen and examined in telemetry unit He has been feeling much better and asking about discharge Remains generally weak and lethargic Review of Systems Review of Systems: All systems reviewed and are unremarkable except as noted below Physical Exam Physical Exam: Lying in bed comfortably Constitutional: well developed, well nourished, + ill appearing and + obese Eyes: PERRL, conjunctivae normal, anicteric sclerae ENMT: external ear and nose normal, oropharynx normal Neck: trachea midline, no thyromegaly Respiratory: no respiratory distress Auscultation: lungs clear to auscultation bilaterally Cardiovascular: Rate/Rhythm: regular rate and regular rhythm; not tachycardic Heart Sounds: normal S1 and normal S2; no murmur Extremities: no edema Gastrointestinal (Abdomen): Inspection/Auscultation: normal bowel sounds; abdomen not distended Percussion/Palpation: + abdomen tender and abdomen soft Musculoskeletal: No acute arthritis in any joint Neurologic: Alert, awake and oriented x3. No focal sensory or motor deficit appreciated Results & Data Results & Data ([facility]) Vital Signs (Past 12 Hours) Vital Signs Temp Pulse Pulse Resp BP Pulse Ox 10/31/21 16:25 36.9 C 55 L 18 132/83 97 10/31/21 15:00 54 L 10/31/21 12:03 36.4 C L 61 19 150/91 H 99 10/31/21 08:18 36.6 C 65 19 125/89 98 10/31/21 07:36 68 Laboratory Results Short CBC 10/31/21 Range/Units 07:05 WBC 6.00 (4.8-10.8) K/uL Hgb 15.9 (14.0-18.0) g/dL Hct 46.8 (42-52) % Plt Count 121 L (130-400) K/uL BMP 10/30/21 10/30/21 10/31/21 18:00 22:34 02:08 Sodium 147 H 149 H 148 H Potassium 4.1 D 3.9 3.9 Chloride 110 H 112 H 113 H Carbon Dioxide 22 24 24 BUN 28 H 27 H 26 H Creatinine 1.57 H 1.53 H 1.53 H Glucose 265 H 156 H 206 H Calcium 9.4 9.9 8.4 L 10/31/21 10/31/21 10/31/21 07:05 07:05 09:38 Sodium 145 Cancelled 146 H Potassium 3.7 Cancelled 3.6 Chloride 112 H Cancelled 112 H Carbon Dioxide 25 Cancelled 26 BUN 23 Cancelled 23 Creatinine 1.49 H Cancelled 1.50 H Glucose 282 H Cancelled 264 H Calcium 8.0 L Cancelled 8.7 Cardiac Enzymes 10/31/21 Range/Units 07:05 Total Creatine Kinase 420 H (30-223) U/L Liver Function 10/31/21 Range/Units 07:05 Total Bilirubin 0.5 (0.2-1.0) mg/dl AST 17 (13-39) U/L ALT 18 (7-52) U/L Alkaline Phosphatase 85 (34-104) U/L Albumin 3.8 (3.4-5.0) gm/dl Medications Administered Current Inpatient Medications Acetaminophen (Acetaminophen 325 Mg Tab) 650 mg PO Q4H PRN PRN Reason: Pain or Fever Stop: 11/29/21 14:07 Heparin Sodium (Porcine) (Heparin Sod 5,000 Unit/0.5 Ml Vial) 5,000 units SQ Q8 [facility] Stop: 11/29/21 14:59 Last Admin: 10/31/21 14:13 Dose: Not Given Documented by: Hydralazine HCl (Hydralazine Hcl 20 Mg/Ml Vial) 5 mg IV Q6H PRN PRN Reason: hypertension Stop: 11/29/21 14:07 Insulin Human Regular 250 (units/ Sodium Chloride) 250 mls @ 3.1 mls/hr IV .Q24H [facility]ON; Protocol Stop: 11/29/21 10:44 Last Titration: 10/31/21 15:30 Dose: 3.1 unit/hr, 3.1 mls/hr Documented by: Promethazine HCl 6.25 mg/ (Sodium Chloride) 50.25 mls @ 201 mls/hr IV Q6H PRN PRN Reason: Nausea And Vomiting Stop: 11/29/21 14:07 Potassium Chloride/Sodium Chloride (1/2 Nss + 20meq Kcl 1000ml) 20 meq in 1,000 mls @ 200 mls/hr IV .Q5H [facility] Stop: 11/30/21 07:29 Last Admin: 10/31/21 13:18 Dose: 200 mls/hr Documented by: Insulin Aspart (Insulin Aspart Per Unit) 0 units SC ACHS [facility] Stop: 11/29/21 16:29 Last Admin: 10/31/21 12:27 Dose: 2 units Documented by: Miscellaneous Information (Pharmacy Glycemic Mgmt Consult) 1 ea N/A UD PRN PRN Reason: Consult Stop: 11/29/21 14:07 Polyethylene Glycol (Polyethylene (Miralax) 17 Gm Pack) 17 gm PO DAILY PRN PRN Reason: Constipation Stop: 11/29/21 14:07
[2021-11-01] MEDS: SODIUM CHLOR 0.45% + 20MEQ KCL 20 MEQ/1,000 ML BAG IV SCH ×4 (04:17→21:45)
[2021-11-01] MEDS: HEPARIN SOD 5,000 UNIT/0.5 ML VIAL SQ SCH ×3 (06:25→21:46)
[2021-11-01] MEDS ORDERED: CARBOHYDRATES FOR HYPOGLYCEMIA PO PRN (07:00)
[2021-11-01] MEDS ORDERED: DEXTROSE 50% 50 ML SYRINGE IV PRN (07:00)
[2021-11-01] MEDS ORDERED: GLUCAGON FOR INJ 1 MG VIAL IM PRN (07:00)
[2021-11-01] MEDS ORDERED: GLUCOSE 10 TABS/TUBE PO PRN (07:00)
[2021-11-01] MEDS ORDERED: GLUCOSE 40% GEL 15 GM TUBE PO PRN (07:00)
[2021-11-01] MEDS: INSULIN ASPART PER UNIT SC SCH ×4 (08:08→21:48)
[2021-11-01] MEDS: INSULIN GLARGINE SOLOSTAR 100 UNITS/ML 3 ML PEN SC SCH ×2 (08:11→21:48)
--- NOTE | 2021-11-01 10:28 | Pharmacy Report ---
Pharmacy Glycemic Short Note 2 - Date of Service November 01, 2021 - Glycemic Short BSG Results (Last 24 hours): 10/31/21 10/31/21 10/31/21 10:42 12:00 13:05 POC Glucose 171 H 171 H 376 H* 10/31/21 10/31/21 10/31/21 13:07 14:06 15:03 POC Glucose 389 H* 356 H* 228 H 10/31/21 10/31/21 10/31/21 16:24 17:39 18:36 POC Glucose 209 H 236 H 229 H 10/31/21 10/31/21 10/31/21 19:30 20:32 21:30 POC Glucose 206 H 175 H 214 H 10/31/21 10/31/21 11/01/21 22:34 23:28 00:29 POC Glucose 169 H 155 H 129 H 11/01/21 11/01/21 11/01/21 02:29 03:24 07:24 POC Glucose 108 H 98 178 H OUTPATIENT ANTIDIABETIC REGIMEN: * N/A * HbA1c: 16.9% (10/31/21) ASSESSMENT: 11/01/21: * BSGs improved and insulin gtt was able to come off overnight. * Pt is now receiving SQ basal/bolus insulin. Will adjust regimen as needed until BSGs are stable. 10/31 * Labs were resolved this morning, indicating that pt could start to transition off of insulin drip. * Lantus provided this morning and dextrose removed from IV fluids. * Despite these changes, pt is still quite dependent on the insulin gtt (currently infusing at 5.2 units/hr, with BSGs >300mg/dL). * Additional Lantus provided this afternoon. 10/30 * Patient presents with DKA. * Patient initiated on IV insulin at 0.1 unit/kg IV bolus the 0.1 unit/kg. Titrate per protocol. * Patient NPO. * Continue current regimen. Start basal insulin when patient's laboratory results have normalized. PLAN FOR INPATIENT GLYCEMIC CONTROL: * Basal insulin * Lantus 20 units SQ BID * Bolus insulin * NovoLog per scale ACHS or Q6hrs while NPO * Goal Range: Low 110 mg/dL - High 140 mg/dL * Correction Factor: 20 mg/dL/unit * Nutritional / Prandial insulin per carb ratio of 1 unit per 5 grams CHO consumed
--- NOTE | 2021-11-01 15:23 | Hospitalist Progress Note ---
Date of Service November 01, 2021 Assessment & Plan (1) DKA (diabetic ketoacidosis): Plan: Diabetic ketoacidosis No known history of Diabetes Mellitus Acute anion gap metabolic acidosis Lactic acidosis: 3.4>1.8 Blood Glucose level 765>480 Start on IV fluids, IV insulin Monitor electrolytes and replace as needed Obtain blood cultures-negative so far No obvious source of infection currently Glycemic pharmacist to help with DKA protocol Check HbA1c--- very high at 16.9 certified lactation educator consulted Started on diabetic diet We will continue insulin drip for now Has been getting subcu insulin and the blood sugar is maintained Tolerating diabetic diet Has been having bradycardia around lower 40s while sleeping Noted to have 1 episode of failed ventricular rhythm for about 2 beats Noted to have hypophosphatemia and hypomagnesemia We will check electrolytes Keep him for another night Acute kidney injury Unknown creatinine baseline Creatinine 1.98 Avoid nephrotoxic agents as able Continue IV fluids Check renal ultrasound-unremarkable sonographic assessment of the kidneys Creatinine has been improving gradually We will check PRP and electrolytes Syncope Blurred vision Likely secondary to hypoglycemia Check CT head-no acute findings Check orthostatics Fall precautions Elevated blood pressure No known history of hypertension IV hydralazine as needed Consider scheduled antihypertensives if persistent Blood pressure seems to be stable right now Hyperlipidemia Hold atorvastatin due to elevated CK levels Continue IV fluids Monitor CK Hyperkalemia Hypermagnesemia Hyperphosphatemia Monitor-potassium has been normal Prolonged QTC Will repeat leg breaker on telemetry Avoid QTC prolonging meds as able Generalized weakness Ambulatory dysfunction PT OT when appropriate Fall precautions Clinically much better DVT Px: Heparin SQ Code Status Full Code Admission and Anticipated Discharge Date Admission Date: October 30, 2021 Subjective 10/31/2021 The patient was seen and examined in telemetry unit He has been feeling much better and asking about discharge Remains generally weak and lethargic 11/01/2021 The patient was seen and examined in telemetry unit He has been feeling much better and is on subcu insulin and tolerating regular diet He was noted to have about 2 pauses at around 7:39 AM this morning without any symptoms He denies any cardiac symptoms Review of Systems Review of Systems: All systems reviewed and are unremarkable except as noted below Physical Exam Physical Exam: Lying in bed comfortably Constitutional: well developed, well nourished, + ill appearing and + obese Eyes: PERRL, conjunctivae normal, anicteric sclerae ENMT: external ear and nose normal, oropharynx normal Neck: trachea midline, no thyromegaly Respiratory: no respiratory distress Auscultation: lungs clear to auscultation bilaterally Cardiovascular: Rate/Rhythm: regular rate and regular rhythm; not tachycardic Heart Sounds: normal S1 and normal S2; no murmur Extremities: no edema Gastrointestinal (Abdomen): Inspection/Auscultation: normal bowel sounds; abdomen not distended Percussion/Palpation: + abdomen tender and abdomen soft Musculoskeletal: No acute arthritis in any joint Neurologic: PERRL, EOMI, accommodation nl, no face palsy, no dysarthria Results & Data Results & Data ([facility]) Vital Signs (Past 12 Hours) Vital Signs Temp Pulse Resp BP BP Pulse Ox 11/01/21 11:00 36.7 C 72 20 134/60 98 11/01/21 10:37 46 L 104/61 11/01/21 08:00 36.5 C 89 16 117/78 98 11/01/21 03:21 36.7 C 55 L 18 111/64 98 Laboratory Results Cardiac Enzymes 11/01/21 11/01/21 Range/Units 05:16 11:02 Troponin I 0.03 < 0.03 (0-0.04) ng/ml Medications Administered Current Inpatient Medications Acetaminophen (Acetaminophen 325 Mg Tab) 650 mg PO Q4H PRN PRN Reason: Pain or Fever Stop: 11/29/21 14:07 Last Admin: 10/31/21 22:40 Dose: 650 mg Documented by: Dextrose (Dextrose 50% 50 Ml Syringe) 25 - 50 ml IV UD PRN; Protocol PRN Reason: Hypoglycemia Protocol Stop: 12/01/21 06:59 Glucagon (Glucagon For Inj 1 Mg Vial) 1 mg IM UD PRN; Protocol PRN Reason: Hypoglycemia Protocol Stop: 12/01/21 06:59 Glucose (Glucose 40% Gel 15 Gm Tube) 15 - 30 gm PO UD PRN; Protocol PRN Reason: Hypoglycemia Protocol Stop: 12/01/21 06:59 Glucose (Glucose 10 Tabs/Tube) 4 - 8 tabs PO UD PRN; Protocol PRN Reason: Hypoglycemia Protocol Stop: 12/01/21 06:59 Heparin Sodium (Porcine) (Heparin Sod 5,000 Unit/0.5 Ml Vial) 5,000 units SQ Q8 [facility] Stop: 11/29/21 14:59 Last Admin: 11/01/21 13:58 Dose: 5,000 units Documented by: Hydralazine HCl (Hydralazine Hcl 20 Mg/Ml Vial) 5 mg IV Q6H PRN PRN Reason: hypertension Stop: 11/29/21 14:07 Promethazine HCl 6.25 mg/ (Sodium Chloride) 50.25 mls @ 201 mls/hr IV Q6H PRN PRN Reason: Nausea And Vomiting Stop: 11/29/21 14:07 Last Infusion: 11/01/21 04:12 Dose: Infused Documented by: Potassium Chloride/Sodium Chloride (1/2 Nss + 20meq Kcl 1000ml) 20 meq in 1,000 mls @ 200 mls/hr IV .Q5H [facility] Stop: 11/30/21 07:29 Last Admin: 11/01/21 13:57 Dose: 200 mls/hr Documented by: Insulin Aspart (Insulin Aspart Per Unit) 0 units SC ACHS [facility] Stop: 12/01/21 07:29 Last Admin: 11/01/21 11:56 Dose: 15 units Documented by: Insulin Glargine (Insulin Glargine Solostar 100 Units/Ml 3 Ml Pen) 20 units SC BID [facility]; Protocol Stop: 12/01/21 08:59 Last Admin: 11/01/21 08:11 Dose: 20 units Documented by: Miscellaneous (Carbohydrates For Hypoglycemia ) 15 - 30 gm PO UD PRN PRN Reason: Hypoglycemia Treatment Stop: 12/01/21 06:59 Miscellaneous Information (Pharmacy Glycemic Mgmt Consult) 1 ea N/A UD PRN PRN Reason: Consult Stop: 11/29/21 14:07 Polyethylene Glycol (Polyethylene (Miralax) 17 Gm Pack) 17 gm PO DAILY PRN PRN Reason: Constipation Stop: 11/29/21 14:07
[2021-11-01 16:28] LABS: BUN Creatinine Ratio 13.9 (10-20); Est GFR (African American) 100.8 ml/min; Est GFR (Non-African American) 86.9 ml/min; Phosphorus 1.5 mg/dl (2.5-4.9); Potassium 4.1 mmol/L (3.5-5.1)
[2021-11-01] MEDS ORDERED: SODIUM PHOSPHATE 3 MMOL/1 ML 5 ML VIAL IV ONE (17:22)
[2021-11-01] MEDS ORDERED: SODIUM PHOSPHATE 30 MMOL in SODIUM CHLORIDE 0.9% 500 ML IV ONE (17:45)
--- NOTE | 2021-11-01 18:57 | Electrocardiogram Report ---
Test Reason : Blood Pressure : / mmHG Vent. Rate : 054 BPM Atrial Rate : 054 BPM P-R Int : 192 ms QRS Dur : 112 ms QT Int : 430 ms P-R-T Axes : 074 070 049 degrees QTc Int : 407 ms Sinus bradycardia Abnormal ECG When compared with ECG of 30-OCT-2021 09:46, Vent. rate has decreased BY 32 BPM Questionable change in QRS duration Confirmed by Timothy Carrero ([id number]) on 11/01/2021 6:56:59 PM Referred By: [facility] Confirmed By:Joao Carrero
[2021-11-02] MEDS: SODIUM CHLOR 0.45% + 20MEQ KCL 20 MEQ/1,000 ML BAG IV SCH ×3 (02:46→13:30)
[2021-11-02] MEDS: HEPARIN SOD 5,000 UNIT/0.5 ML VIAL SQ SCH ×2 (06:19→15:11)
[2021-11-02] MEDS: INSULIN ASPART PER UNIT SC SCH ×2 (08:27→13:04)
[2021-11-02 08:31] LABS: Hematocrit (blood only) 42.7 % (42-52); Hemoglobin 14.3 g/dL (14.0-18.0); Mean Corpuscular Hemoglobin 29.5 pg (25-34); Mean Corpuscular Hgb Conc 33.5 g/dL (32-36); RDW Coefficient of Variation 14.2 % (11.5-14.5); Red Blood Count 4.85 M/uL (4.7-6.1); White Blood Count 3.77 K/uL (4.8-10.8)
[2021-11-02] MEDS: INSULIN GLARGINE SOLOSTAR 100 UNITS/ML 3 ML PEN SC SCH (08:33)
[2021-11-02 08:53] LABS: BUN Creatinine Ratio 8.2 (10-20); Calcium 7.6 mg/dl (8.5-10.1); Creatinine Clr Calc Pharmacy 121.5 ml/min; Est GFR (African American) 105.8 ml/min; Est GFR (Non-African American) 91.3 ml/min; Magnesium 1.9 mg/dl (1.7-2.4); Phosphorus 2.3 mg/dl (2.5-4.9); Potassium 4.4 mmol/L (3.5-5.1)
[2021-11-02 08:56] LABS: Basophils # (auto) 0.01 K/uL (0-0.2); Basophils % (auto) 0.3 %; Eosinophils # (auto) 0.03 K/uL (0-0.5); Eosinophils % (auto) 0.8 %; Lymphocytes # (auto) 2.04 K/uL (1.2-3.4); Lymphocytes % (auto) 54.1 %; Mean Platelet Volume 11.7 fL (7.4-10.4); Monocytes # (auto) 0.23 K/uL (0.11-0.59); Monocytes % (auto) 6.1 %; Neutrophils # (auto) 1.46 K/uL (1.4-6.5); Neutrophils % (auto) 38.7 %; Platelet Count 86 K/uL (130-400); Platelet Estimate Decreased (Normal)
[2021-11-02] MEDS ORDERED: SODIUM PHOSPHATE 3 MMOL/1 ML 5 ML VIAL IV ONE (08:58)
[2021-11-02] MEDS ORDERED: SODIUM PHOSPHATE 30 MMOL in SODIUM CHLORIDE 0.9% 500 ML IV ONE (09:30)
--- NOTE | 2021-11-02 12:33 | Hospitalist Progress Note ---
Date of Service November 02, 2021 Assessment & Plan (1) DKA (diabetic ketoacidosis): Plan: Diabetic ketoacidosis No known history of Diabetes Mellitus Acute anion gap metabolic acidosis Lactic acidosis: 3.4>1.8 Blood Glucose level 765>480 Start on IV fluids, IV insulin Monitor electrolytes and replace as needed Obtain blood cultures-negative so far No obvious source of infection currently Glycemic pharmacist to help with DKA protocol Check HbA1c--- very high at 16.9 museum educator consulted Started on diabetic diet We will continue insulin drip for now Has been getting subcu insulin and the blood sugar is maintained Tolerating diabetic diet Medically stable and will be discharged to [facility] this afternoon Has been having bradycardia around lower 40s while sleeping Noted to have 1 episode of failed ventricular rhythm for about 2 beats Noted to have hypophosphatemia and hypomagnesemia We will check electrolytes Keep him for another night Reviewed telemetry recording and did not have any more bloody arrhythmias His electrolytes have been replaced and normalized Acute kidney injury Unknown creatinine baseline Creatinine 1.98 Avoid nephrotoxic agents as able Continue IV fluids Check renal ultrasound-unremarkable sonographic assessment of the kidneys Creatinine has been improving gradually We will check PRP and electrolytes-creatinine has been normalized Syncope Blurred vision Likely secondary to hypoglycemia Check CT head-no acute findings Check orthostatics Fall precautions Elevated blood pressure No known history of hypertension IV hydralazine as needed Consider scheduled antihypertensives if persistent Blood pressure seems to be stable right now Hyperlipidemia Hold atorvastatin due to elevated CK levels Continue IV fluids Monitor CK Hyperkalemia Hypermagnesemia Hyperphosphatemia Monitor-potassium has been normal Prolonged QTC Will repeat rat farmer on telemetry Avoid QTC prolonging meds as able Generalized weakness Ambulatory dysfunction PT OT when appropriate Fall precautions Clinically much better and will be discharged home this afternoon DVT Px: Heparin SQ Code Status Full Code Admission and Anticipated Discharge Date Admission Date: October 30, 2021 Subjective 10/31/2021 The patient was seen and examined in telemetry unit He has been feeling much better and asking about discharge Remains generally weak and lethargic 11/01/2021 The patient was seen and examined in telemetry unit He has been feeling much better and is on subcu insulin and tolerating regular diet He was noted to have about 2 pauses at around 7:39 AM this morning without any symptoms He denies any cardiac symptoms 11/02/2021 The patient was seen and examined in telemetry unit He has been feeling much better and denies any symptoms He did not have any more episode of bradycardia arrhythmia His electrolytes have been replaced Review of Systems Review of Systems: All systems reviewed and are unremarkable except as noted below Physical Exam Physical Exam: Lying in bed comfortably Constitutional: well developed, well nourished, + ill appearing and + obese Eyes: PERRL, conjunctivae normal, anicteric sclerae ENMT: external ear and nose normal, oropharynx normal Neck: trachea midline, no thyromegaly Respiratory: no respiratory distress Auscultation: lungs clear to auscultation bilaterally Cardiovascular: Rate/Rhythm: regular rate and regular rhythm; not tachycardic Heart Sounds: normal S1 and normal S2; no murmur Extremities: no edema Gastrointestinal (Abdomen): Inspection/Auscultation: normal bowel sounds; abdomen not distended Percussion/Palpation: + abdomen tender and abdomen soft Musculoskeletal: No acute arthritis in any joint Neurologic: PERRL, EOMI, accommodation nl, no face palsy, no dysarthria Psychiatric: A+Ox3, euthymic affect Results & Data Results & Data ([facility]) Vital Signs (Past 12 Hours) Vital Signs Temp Pulse Resp BP Pulse Ox 11/02/21 12:00 36.8 C 78 18 122/71 98 11/02/21 07:00 36.8 C 65 18 110/74 95 11/02/21 03:00 36.8 C 52 L 16 107/65 100 Laboratory Results Short CBC 11/02/21 Range/Units 08:14 WBC 3.77 L (4.8-10.8) K/uL Hgb 14.3 (14.0-18.0) g/dL Hct 42.7 (42-52) % Plt Count 86 L (130-400) K/uL BMP 11/01/21 11/02/21 15:45 08:14 Sodium 135 L D 137 Potassium 4.1 4.4 Chloride 110 H 107 Carbon Dioxide 21 26 BUN 14 8 Creatinine 1.01 D 0.97 Glucose 255 H 227 H Calcium 8.0 L 7.6 L Medications Administered Current Inpatient Medications Acetaminophen (Acetaminophen 325 Mg Tab) 650 mg PO Q4H PRN PRN Reason: Pain or Fever Stop: 11/29/21 14:07 Last Admin: 10/31/21 22:40 Dose: 650 mg Documented by: Dextrose (Dextrose 50% 50 Ml Syringe) 25 - 50 ml IV UD PRN; Protocol PRN Reason: Hypoglycemia Protocol Stop: 12/01/21 06:59 Glucagon (Glucagon For Inj 1 Mg Vial) 1 mg IM UD PRN; Protocol PRN Reason: Hypoglycemia Protocol Stop: 12/01/21 06:59 Glucose (Glucose 40% Gel 15 Gm Tube) 15 - 30 gm PO UD PRN; Protocol PRN Reason: Hypoglycemia Protocol Stop: 12/01/21 06:59 Glucose (Glucose 10 Tabs/Tube) 4 - 8 tabs PO UD PRN; Protocol PRN Reason: Hypoglycemia Protocol Stop: 12/01/21 06:59 Heparin Sodium (Porcine) (Heparin Sod 5,000 Unit/0.5 Ml Vial) 5,000 units SQ Q8 [facility] Stop: 11/29/21 14:59 Last Admin: 11/02/21 06:19 Dose: 5,000 units Documented by: Hydralazine HCl (Hydralazine Hcl 20 Mg/Ml Vial) 5 mg IV Q6H PRN PRN Reason: hypertension Stop: 11/29/21 14:07 Promethazine HCl 6.25 mg/ (Sodium Chloride) 50.25 mls @ 201 mls/hr IV Q6H PRN PRN Reason: Nausea And Vomiting Stop: 11/29/21 14:07 Last Infusion: 11/01/21 04:12 Dose: Infused Documented by: Potassium Chloride/Sodium Chloride (1/2 Nss + 20meq Kcl 1000ml) 20 meq in 1,000 mls @ 200 mls/hr IV .Q5H [facility] Stop: 11/30/21 07:29 Last Admin: 11/02/21 07:39 Dose: 200 mls/hr Documented by: Sodium Phosphate 30 mmol/ (Sodium Chloride) 510 mls @ 88 mls/hr IV ONE ONE Stop: 11/02/21 15:17 Last Admin: 11/02/21 09:28 Dose: 88 mls/hr Documented by: Insulin Aspart (Insulin Aspart Per Unit) 0 units SC ACHS [facility] Stop: 12/01/21 07:29 Last Admin: 11/02/21 08:27 Dose: 15 units Documented by: Insulin Glargine (Insulin Glargine Solostar 100 Units/Ml 3 Ml Pen) 20 units SC BID [facility]; Protocol Stop: 12/01/21 08:59 Last Admin: 11/02/21 08:33 Dose: 20 units Documented by: Miscellaneous (Carbohydrates For Hypoglycemia ) 15 - 30 gm PO UD PRN PRN Reason: Hypoglycemia Treatment Stop: 12/01/21 06:59 Miscellaneous Information (Pharmacy Glycemic Mgmt Consult) 1 ea N/A UD PRN PRN Reason: Consult Stop: 11/29/21 14:07 Polyethylene Glycol (Polyethylene (Miralax) 17 Gm Pack) 17 gm PO DAILY PRN PRN Reason: Constipation Stop: 11/29/21 14:07
--- NOTE | 2021-11-02 13:31 | Pharmacy Report ---
Pharmacy Glycemic Short Note 2 - Date of Service November 02, 2021 - Glycemic Short BSG Results (Last 24 hours): 11/01/21 11/01/21 11/01/21 15:45 16:22 21:19 Glucose 255 H POC Glucose 196 H 132 H 11/02/21 11/02/21 11/02/21 07:45 08:14 11:25 Glucose 227 H POC Glucose 187 H 185 H OUTPATIENT ANTIDIABETIC REGIMEN: * N/A * HbA1c: 16.9% (10/31/21) ASSESSMENT: 11/02/21 * Patient's BSGs yesterday were [phone] mg/dL. * Patient received 84 units of insulin (40 units of basal insulin and 44 units of bolus insulin) * Fasting today is 187 mg/dL so continue Lantus 20 units BID. * Since BSGs stable, continue Novolog. 11/01/21: * BSGs improved and insulin gtt was able to come off overnight. * Pt is now receiving SQ basal/bolus insulin. Will adjust regimen as needed until BSGs are stable. 10/31 * Labs were resolved this morning, indicating that pt could start to transition off of insulin drip. * Lantus provided this morning and dextrose removed from IV fluids. * Despite these changes, pt is still quite dependent on the insulin gtt (currently infusing at 5.2 units/hr, with BSGs >300mg/dL). * Additional Lantus provided this afternoon. 10/30 * Patient presents with DKA. * Patient initiated on IV insulin at 0.1 unit/kg IV bolus the 0.1 unit/kg. Titrate per protocol. * Patient NPO. * Continue current regimen. Start basal insulin when patient's laboratory results have normalized. PLAN FOR INPATIENT GLYCEMIC CONTROL: * Basal insulin * Lantus 20 units SQ BID * Bolus insulin * NovoLog per scale ACHS or Q6hrs while NPO * Goal Range: Low 110 mg/dL - High 140 mg/dL * Correction Factor: 20 mg/dL/unit * Nutritional / Prandial insulin per carb ratio of 1 unit per 5 grams CHO consumed Discharge recommendations * Per discussion through nurse to patient, patient likes basal bolus coverage so will recommend that. * Lantus (Semglee) 40 units daily (can start 11/03/21 by giving evening dose of 11/02/21 around dinnertime) * Regular insulin with meals (can start with 8 units with meals and 10 units with larger meal) ---- titrate as needed * metformin XR 500 mg daily and titrate upwards weekly by 500 mg
--- NOTE | 2021-11-03 08:31 | Discharge Summary ---
Date of Service November 03, 2021 Admission HPI Per Admitting Provider Patient is a 51-year-old male with history of hyperlipidemia and no other medical problems [place] [facility] with history of gradually worsening increased thirst, increased urination and generalized weakness since 2 weeks duration he also states having shortness of breath at rest and with activity. He admits to drinking water more frequently but despite feels dry mouth. He had an episode of nausea, vomiting today. He states that he has been having intermittent fever, chills, dizziness and has a very poor appetite for the past 2 weeks. He also has been having blurred vision and difficulty randell ntrating over the same period. [facility] and had a syncopal episode. He was unaware of the events after the syncope. [employer] guards at bedside, mentioned that he could have passed out for about 15 minutes. Patient states having generalized weakness and fatigue resulting in difficulty with ambulation. Denies any history of chest pain, palpitations, pedal edema, cough, hemoptysis, headache, bowel/bladder incontinence, abdominal pain, diarrhea, dysuria, hematuria, recent change in medications. Admission Exam Per Admitting Provider Physical Exam: Physical Exam: Vitals signs as noted above General Appearance:Moderately built and nourished, no apparent distress Head: normocephalic, Atraumatic Eyes: normal inspection, EOMI Neck: supple, Trachea midline Respiratory/Chest: Normal breath sounds, CTA, No accessory muscle use Cardiovascular: S1, S2, No murmur Abdomen/GI:Soft, Non tender, Bowel sounds present Extremities/Musculoskeletal:normal inspection, no edema Neurologic/Psych:AAOX3, grossly no focal neurological deficits Skin: normal color, warm Principal Diagnosis Diabetic ketoacidosis, acute kidney injury-resolved, syncope-resolved Discharge Exam Lying in bed comfortably Constitutional well developed, well nourished, + ill appearing and + obese Eyes PERRL, conjunctivae normal, anicteric sclerae ENMT external ear and nose normal, oropharynx normal Neck trachea midline, no thyromegaly Respiratory no respiratory distress Auscultation: lungs clear to auscultation bilaterally Cardiovascular Rate/Rhythm: regular rate and regular rhythm; not tachycardic Heart Sounds: normal S1 and normal S2; no murmur Extremities: no edema Gastrointestinal (Abdomen) Inspection/Auscultation: normal bowel sounds; abdomen not distended Percussion/Palpation: + abdomen tender and abdomen soft Neurologic PERRL, EOMI, accommodation nl, no face palsy, no dysarthria Psychiatric A+Ox3, euthymic affect Discharge Data Allergies Allergy/AdvReac Type Severity Reaction Status Date / Time No Known Allergies Allergy Unverified 10/30/21 11:11 Consultations 10/30/21 11:15 ED Decision to Admit Stat Ordered Studies 10/30/21 13:24 CT head/brain wo con Routine 10/30/21 14:30 US renal/blad retro comp Routine Diabetes Follow up Diabetes Follow-up Needed for HgbA1c >9%,Newly Diagnosed Diabetes Hospital Course (1) DKA (diabetic ketoacidosis): Diabetic ketoacidosis No known history of Diabetes Mellitus Acute anion gap metabolic acidosis Lactic acidosis: 3.4>1.8 Blood Glucose level 765>480 Start on IV fluids, IV insulin Monitor electrolytes and replace as needed Obtain blood cultures-negative so far No obvious source of infection currently Glycemic pharmacist to help with DKA protocol Check HbA1c--- very high at 16.9 senior electrical engineer consulted Started on diabetic diet We will continue insulin drip for now Has been getting subcu insulin and the blood sugar is maintained Tolerating diabetic diet Medically stable and will be discharged to [facility] this afternoon Has been having bradycardia around lower 40s while sleeping Noted to have 1 episode of failed ventricular rhythm for about 2 beats Noted to have hypophosphatemia and hypomagnesemia We will check electrolytes Keep him for another night Reviewed telemetry recording and did not have any more bloody arrhythmias His electrolytes have been replaced and normalized Acute kidney injury Unknown creatinine baseline Creatinine 1.98 Avoid nephrotoxic agents as able Continue IV fluids Check renal ultrasound-unremarkable sonographic assessment of the kidneys Creatinine has been improving gradually We will check PRP and electrolytes-creatinine has been normalized Syncope Blurred vision Likely secondary to hypoglycemia Check CT head-no acute findings Check orthostatics Fall precautions Elevated blood pressure No known history of hypertension IV hydralazine as needed Consider scheduled antihypertensives if persistent Blood pressure seems to be stable right now Hyperlipidemia Hold atorvastatin due to elevated CK levels Continue IV fluids Monitor CK Hyperkalemia Hypermagnesemia Hyperphosphatemia Monitor-potassium has been normal Prolonged QTC 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 Avoid QTC prolonging meds as able Generalized weakness Ambulatory dysfunction PT OT when appropriate Fall precautions Clinically much better and will be discharged home this afternoon DVT Px: Heparin SQ Code Status Full Code Total Time Total Time Spent Total Time Spent (In Minutes): 40 minutes Discharge Plan Discharge Items [facility] Reason For Visit: DKA Discharge Diagnosis: Diabetic ketoacidosis, acute kidney injury-resolved, syncope-resolved Condition on Discharge: Fair Activity: Resume your previous activity Non-emergency contact: Primary Care Provider Call non-emergency contact if: you have any medication questions and your symptoms worsen Follow-up/Referrals: Ava WRIGHT [Primary Care Provider] - Diet: Carb Consistent or DM2 Addtl Attending Provider Instructions: Please take precautions to avoid fall Take your medications as advised Have regular follow-up with your healthcare providers Check your blood sugar AC at bedtime Pending Studies at Discharge: No Stand-Alone Forms: My [facility] [employer] Skilled Items Patient informed of condition?: Yes Discharge Level of Care: Other Communicable Disease: No Discharge Prognosis: Stable Lines: None Urinary Catheter: No Medications and DC Order Prescriptions: New Lantus Solostar U-100 Insulin 100 unit/mL (3 mL) insulin pen 40 unit subcut QAM Qty: 3 RF: 0 insulin regular human 100 unit/mL (3 mL) insulin pen 8 unit subcut TID Qty: 15 RF: 0 metformin 500 mg tablet extended release 24 hr 500 mg PO DAILY Qty: 30 RF: 0 Continued atorvastatin 40 mg Tablet 40 mg PO DAILY RF: 0 Discharge Orders: Discharge Order (Routine); Ordered 11/02/21 Ordered By: Cristina Oconnell Admission Data Admit Date/Time: 10/30/21 11:46 Attending Provider: Cristina Oconnell Admit Provider: Royer Luke Primary Care Provider: Ava WRIGHT Other Providers: Royer Luke Other Interventions: Discharge Summary Assessment (RN) Last Done: 11/02/21 14:20
== END 2021-11-02 16:23 | DRG 638 ==
LOC: ED 09:36 → 2S 11:46 → SUATTDRO 11:46 → 2S 14:24